=== PATIENT | female | born 1955 | race Caucasian/White ===

== ENCOUNTER 2016-11-12 19:12 | Inpatient (IN) | payer BC, OTHER ==
[~2016-11-12] VITALS: Ht 152.4 cm; Wt 66.3 kg
--- NOTE | 2016-11-12 19:32 | NUR ---
PT IS 61 Y/O FEMALE WITH CC OF ABD PAIN 10/10 AND CONSTIPATION X 3 DAYS SECONDARY TO BLADDER SX. PATIENT'S BREATHING IS EQUAL AND SYMETRICAL. WILL CONTINUE TO MONITOR FOR SAFETY
--- NOTE | 2016-11-12 20:12 | NUR ---
PLEASE ENTER FULL NAMES OF STUDENT/RN Documentation completed by (Student Nurse):MARTY HILL Documentation reviewed by (Registered Nurse): OTONIEL LOOMIS RN
[2016-11-12 20:27] LABS: PLATELET COUNT 145 x10^3mcL (130-400); RED CELL DISTRIBUTION WIDTH 12.8 % (11.5-14.5)
[2016-11-12 20:31] LABS: BASOPHIL % 0 % (0-2)
[2016-11-12 20:36] LABS: UA SPECIFIC GRAVITY <=1.005 (1.005-1.035); microscopic required? YES; urine erythrocyte 2+ (NEGATIVE)
[2016-11-12 20:38] LABS: CALCIUM 8.4 mg/dL (8.5-10.1); CARBON DIOXIDE 26.1 mmol/L (21-32); CREATININE SERUM 1.1 mg/dL (0.6-1.0); POTASSIUM SERUM 3.7 mmol/L (3.5-5.1)
[2016-11-12 20:42] LABS: BILIRUBIN TOTAL 0.79 mg/dL (0.20-1.00); TOTAL PROTEIN, SERUM 6.7 g/dL (6.4-8.2)
[2016-11-12 20:50] LABS: ALBUMIN 3.2 g/dL (3.4-5.0)
--- NOTE | 2016-11-12 21:00 | NUR ---
PT TRANSPORTED TO RADIOLOGY
--- NOTE | 2016-11-12 21:23 | NUR ---
PT BACK FROM RADIOLOGY
--- NOTE | 2016-11-12 21:59 | NUR ---
ROCEPHIN PLACED ON HOLD. WANTS BC. WILL RESUME AFTER BLOOD DRAW
[2016-11-12] MEDS ORDERED: TYLENOL WITH CO1 TA2 PO (22:00)
--- NOTE | 2016-11-12 22:20 | NUR ---
REPORT GIVEN TO ALBARO BESS
--- NOTE | 2016-11-12 22:45 | NUR ---
PT TRANSPORTED TO [facility] ON CM BY OTONIEL IRVIN AND DORCAS EMT. PT IN NAD
[2016-11-12 22:48] VITALS: BP 151/55
[2016-11-12 23:16] VITALS: BP 130/85
--- NOTE | 2016-11-12 23:21 | NUR ---
RECEIVED PT FROM ED VIA [facility]. ORIENTED PT TO ROOM AND SURROUNDIGNS. IV NOTED TO RIGHT HAND PATENT AND INTACT. TELE 10 PLACED ON PT READING NSR. INSTRUCTED PT ON THE USE OF CALL LIGHT FOR ASSISTANCE. ENDORSED PT TO PRIMARY NURSE SHAHRIAR
[2016-11-12 23:41] LABS: FREE T4 1.3 ng/dL (0.76-1.46); FREE THYROXINE INDEX 2.7 ug/dL (1.4-4.5); T4(THYROXINE) 7.8 ug/dL (4.7-13.3)
[2016-11-12 23:42] LABS: T3 TOTAL 0.73 ng/mL
[2016-11-12 23:43] LABS: CHOLESTEROL/HDL RATIO 2.3
--- NOTE | 2016-11-13 00:17 | NUR ---
RECEIVED PT FROM RESOURCE NURSE [facility]. NO ACUTE DISTRES, ORIENTED PT TO ROOM. WILL CONTINUE TO MONITOR.
--- NOTE | 2016-11-13 02:00 | NUR ---
PT CURRENTLY RESTING IN BED, NO ACUTE DISTRESS. WILL CONTINUE TO MONITOR.
[2016-11-13 05:25] VITALS: BP 115/67
--- NOTE | 2016-11-13 05:59 | NUR ---
PT SLEPT PERIODICALLY THROUGHOUT NIGHT, NO ACUTE DISTRESS. ALL NEEDS MET AND ATTENDED TO. NO SIGNIFICANT CHANGES. MEDICATED PAIN PER EMAR. IV PATENT AND INTACT. BED IN LOWEST POSITION, SIDE RAILS UP X2, SCDS IN PLACE, CALL LIGHT WITHIN REACH. WILL ENDORSE CARE TO ONCOMING NURSE.
[2016-11-13 06:31] LABS: BASOPHIL % 0.2 % (0-2); PLATELET COUNT 144 x10^3mcL (130-400); RED CELL DISTRIBUTION WIDTH 13.2 % (11.5-14.5)
[2016-11-13 06:39] LABS: CARBON DIOXIDE 23.5 mmol/L (21-32); CHLORIDE SERUM 109 mmol/L (98-107); GFR1 > 60 mL/min; GLUCOSE SERUM 128 mg/dL (74-106); MAGNESIUM 2.1 mg/dL (1.8-2.4); PHOSPHOROUS 3.3 mg/dL (2.5-4.9); SODIUM SERUM 143 mmol/L (136-145)
--- NOTE | 2016-11-13 07:55 | NUR ---
AWAKE,ALERT AND ORIENTED. DENIES ANY N/V AT THIS TIME. CONT. IV FLUIDS AND IV ANTIBIOTIC ORDERED.CALL LIGHT W/ IN REACH.AMBULATED IN THE BATHROOM AND VOIDING WELL.NO ACUTE RESP. DISTRESS NOTED. WILL CONT. PLAN OF CARE.
--- NOTE | 2016-11-13 08:10 | NUR ---
DR. MARINO HERE AND MADE ROUNDS W/ OTHER MEDICAL STAFF AND UPDATED PT. PLAN OF CARE.
[2016-11-13 09:48] VITALS: BP 144/76
[2016-11-13 13:13] VITALS: BP 104/59
--- NOTE | 2016-11-13 13:45 | NUR ---
PT. C/O PAIN IN ABD. AREA MEDICATED W/ DILAUDID ORDERED,MADE PT. COMFORTABLE IN BED. CALL LIGHT W/ IN REACH.
--- NOTE | 2016-11-13 14:30 | NUR ---
MG CITRATE GIVEN ORDERED. W/ GOOD RESULTS. BM X 3 AND VOIDING WELL.NO ACUTE DISTRESS NOTED.
[2016-11-13 15:00] LABS: AMPHETAMINE QUAL UR NONE DETECTED (NEG <=1000)
[2016-11-13 17:27] VITALS: BP 149/55
--- NOTE | 2016-11-13 20:23 | NUR ---
PT CURRENTLY RESTING IN BED, NO ACUTE DISTRESS. A/O X4. NO TELE, MED/SURG. DENIES CHEST PAIN. PULSES PALPABLE IN ALL EXTREMITIES, NO EDEMA NOTED. LUNG SOUNDS CTA BILATERALLY. BOWEL SOUNDS ACTIVE, LAST BM 11/13/16. PT REPORTS NAUSEA, MEDICATED PER EMAR. VOIDING WELL. AMBULATORY. SKIN INTACT. DENIES PAIN AT THIS TIME. IV PATENT AND INTACT. BED IN LOWEST POSITION, SIDE RAILS UP X2, SCDS IN PLACE, CALL LIGHT WITHIN REACH. WILL CONTINUE TO MONITOR.
[2016-11-13 21:37] VITALS: BP 136/50
--- NOTE | 2016-11-14 01:30 | NUR ---
PT CURRENTLY RESTING IN BED, C/O ABD PAIN 02/17. MEDICATED PER EMAR. WILL CONTINUE TO MONITOR.
[2016-11-14 05:54] VITALS: BP 143/62
--- NOTE | 2016-11-14 06:07 | NUR ---
PT SLEPT PERIODICALLY THROUGHOUT NIGHT. NO ACUTE DISTRESS. ALL NEEDS MET AND ATTENDED TO. NO SIGNIFICANT CHANGES. MEDICATED PAIN PER EMAR. IV PATENT AND INTACT. BED IN LOWEST POSITION, SIDE RAILS UP X2, SCDS IN PLACE, CALL LIGHT WITHIN REACH. WILL ENDORSE CARE TO ONCOMING NURSE.
[2016-11-14 06:55] LABS: BASOPHIL % 0.2 % (0-2); PLATELET COUNT 153 x10^3mcL (130-400); RED CELL DISTRIBUTION WIDTH 12.8 % (11.5-14.5)
[2016-11-14 07:00] LABS: CALCIUM 8.2 mg/dL (8.5-10.1); CARBON DIOXIDE 28.8 mmol/L (21-32); CHLORIDE SERUM 105 mmol/L (98-107); GFR1 > 60 mL/min; GLUCOSE SERUM 87 mg/dL (74-106); MAGNESIUM 2.2 mg/dL (1.8-2.4); PHOSPHOROUS 2.7 mg/dL (2.5-4.9); SODIUM SERUM 143 mmol/L (136-145)
--- NOTE | 2016-11-14 07:55 | NUR ---
PT IS A/O X 4. DENIES N/V AT THIS. PT HAS NO ABD PAIN. PT STILL EXPERIENCING DIARRHEA DUE TO ADMINISTRATION OF MAG CITRATE GIVEN ORDERED. CONTINUE IVF @ 50 ML/HR AND IVPB ANTIBX. FULL LIQUID DIET ORDERED. PT IS TOLERATING WELL. WILL CONTINUE PLAN OF CARE.
--- NOTE | 2016-11-14 09:05 | NUR ---
DR. SANCHEZ MADE ROUNDS WITH OTHER MEDICAL STAFF AND UDPATED PT WITH PLAN OF CARE.
[2016-11-14 09:11] VITALS: BP 141/59
[2016-11-14 12:59] VITALS: BP 122/49
[2016-11-14 16:55] VITALS: BP 137/66
--- NOTE | 2016-11-14 18:29 | NUR ---
PT. RESTING COMFORTABLY IN BED. DURAN. DINNER WELL NO N/V NOTED AT THIS TIME. CALL LIGHT W/ IN REACH.
--- NOTE | 2016-11-14 19:40 | NUR ---
PT CURRENTLY RESTING IN BED, NO ACUTE DISTRESS. A/O X4. NO TELE, MED/SURG. PULSES PALPABLE IN ALL EXTREMITIES, NO EDEMA NOTED. LUNG SOUNDS CTA BILATERALLY. BOWEL SOUNDS ACTIVE, LAST BM 11/14/16. PT REPORTS WATERY STOOLS AND ABD PAIN /, DENYING PAIN MEDICATION AT THIS TIME. VOIDING WELL. AMBULATORY. SKIN INTACT. IV PATENT AND INTACT. BED IN LOWEST POSITION, SIDE RAILS UP X2, SCDS IN PLACE, CALL LIGHT WITHIN REACH. WILL CONTINUE TO MONITOR.
[2016-11-14 21:03] VITALS: BP 113/54
--- NOTE | 2016-11-15 01:08 | NUR ---
PT CURRENTLY RESTING IN BED, NO ACUTE DISTRESS. WILL CONTINUE TO MONITOR.
[2016-11-15 05:25] VITALS: BP 131/74
--- NOTE | 2016-11-15 05:37 | NUR ---
PT SLEPT PERIODICALLY THROUGHOUT NIGHT. NO ACUTE DISTRESS. ALL NEEDS MET AND ATTENDED TO. NO SIGNIFICANT CHANGES. IV PATENT AND INTACT. MEDICATED PAIN PER EMAR. BED IN LOWEST POSITION, SIDE RAILS UP X2, SCDS IN PLACE, CALL LIGHT WITHIN REACH. WILL ENDORSE CARE TO ONCOMING NURSE.
[2016-11-15 07:29] LABS: BASOPHIL % 0.4 % (0-2); PLATELET COUNT 176 x10^3mcL (130-400); RED CELL DISTRIBUTION WIDTH 12.8 % (11.5-14.5)
[2016-11-15 07:32] LABS: CALCIUM 8.1 mg/dL (8.5-10.1); CARBON DIOXIDE 28.4 mmol/L (21-32); CHLORIDE SERUM 106 mmol/L (98-107); CREATININE SERUM 0.8 mg/dL (0.6-1.0); GFR1 > 60 mL/min; GLUCOSE SERUM 109 mg/dL (74-106); POTASSIUM SERUM 3.9 mmol/L (3.5-5.1); SODIUM SERUM 142 mmol/L (136-145)
[2016-11-15 08:00] VITALS: BP 116/52
[2016-11-15 09:46] VITALS: BP 116/52
--- NOTE | 2016-11-15 10:39 | NUR ---
AAO TIMES 4. NO TELE. LUNGS CTA. NO SOB. O2 SAT ON RA 98%. BS'S ACTIVE TIMES 4. SALGUERO STRONG. SCD BLE. COOPERATIVE AND PLEASANT. NO C/O PAIN. IV SITE CDI. NO C/O PAIN. DTR PRESENT, SUPPORITIVE. DR HURTADO TALKED TO PATIENT AND DTR. MEDICAL ROUNDS OCCURED WITH DR TOLLIVER AND THE MEDICINE TEAM AT [id number]. THE PLAN TODAY IS TO SEND HER HOME THIS AFTERNOON.
[2016-11-15] MEDS ORDERED: ZOF4 PO (10:44)
[2016-11-15] MEDS ORDERED: ZITHROMAX250 MG PO (10:47)
[2016-11-15] MEDS ORDERED: LAC PO (10:48)
[2016-11-15] MEDS ORDERED: DOCUSATE SODIU100 M1 PO (10:49)
[2016-11-15] MEDS ORDERED: DULCOLAX5 M1 PO (10:54)
[2016-11-15 13:30] VITALS: BP 116/52
--- NOTE | 2016-11-15 13:41 | NUR ---
AT 1215 PT AMBULATED AROUND ENTIRE UPSTAIRS LOOPS TIMES 1. TOLERATED FAIR.
--- NOTE | 2016-11-15 14:58 | NUR ---
DC'D SL ANGIO INTACT. GAVE DISCHARGE INSTRUCTIONS AND PRESCRIPTION. PT VERBALIZED "I UNDERSTAND" TO ALL INSTRUCTIONS. PT'S DTR PRESENT.
== END 2016-11-15 14:50 | disposition home or self-care (01) | DRG 389 ==
LOC: ED 19:12 → DU 21:45 → MU 21:45 → DU 22:43 → MU 11-13 18:35
PROVIDERS: Emergency Medicine; ADMIT Family Medicine
DX: K56.41 Fecal impaction (principal); N39.0 Urinary tract infection, site not specified; E44.0 Moderate protein-calorie malnutrition; F43.0 Acute stress reaction; Z68.28 Body mass index [BMI] 28.0-28.9, adult
CPT/HCPCS: 80307; 83880; 84439; J0696; J1170; J2270; J2405; J7030

== ENCOUNTER 2020-02-20 07:15 | Day surgery (SDC) | payer BC, OTHER ==
[~2020-02-20] VITALS: Ht 152.4 cm; Wt 68.0 kg
[~2020-02-20 07:15] MED LIST: DOCUSATE SODIU100 M1 PO; DULCOLAX5 M1 PO; LAC PO; TYLENOL WITH CO1 TA2 PO; ZITHROMAX250 MG PO; ZOF4 PO
[2020-02-20 07:38] VITALS: BP 160/75
[2020-02-20 10:33] VITALS: BP 124/56
== END 2020-02-20 10:15 | disposition home or self-care (01) ==
LOC: OR 07:15
PROVIDERS: ATTEND Internal Medicine
DX: K62.3 Rectal prolapse (principal); I10 Essential (primary) hypertension; E78.5 Hyperlipidemia, unspecified; Z90.49 Acquired absence of other specified parts of digestive tract; Z11.59 Encounter for screening for other viral diseases
CPT/HCPCS: 45378; J1200; J1610; J2250; J2310; J3010; J3490; U0003-CS